=== PATIENT | male | born 1990 | race Caucasian/White ===

== ENCOUNTER 2016-10-03 21:23 | Emergency (ER) | payer MEDICAID, OTHER ==
[2016-10-03] MEDS ORDERED: ASPIRIN (CHEWABLE) 81 MG TAB ONE (21:38)
[2016-10-03] MEDS ORDERED: ASPIRIN (CHEWABLE) 81 MG TAB PO ONE (21:45)
--- NOTE | 2016-10-03 21:53 | ED.PDOC ---
History of Present Illness - General Chief Complaint: Chest Pain/LA Stated Complaint: Chest pain Time Seen by Provider: 10/03/16 21:44 Source: patient, RN notes reviewed, Vital Signs reviewed Exam Limitations: no limitations - History of Present Illness Initial Comments: Patient comes in with L sided chest pain that started @ ~3pm today. Pain is dull and occasionally feels like a cramp. It waxes and wanes in intensity. Currently 07/29. Pain radiates to L upper back and L shoulder/upper arm feels numb. + SOB when pain comes. + nausea. No diaphoresis. No history of cardiovascular disease. Remote family history in grandparents. Father id due to accident. Mom has HTN. Timing/Duration: 7-24 hours Severity/Quality: moderate, dull, tightness Location: substernal Chest Pain Radiation: shoulders - Left, back Activities at Onset: emotional stress Prior Chest Pain/Cardiac Workup: no prior chest pain Improving Factors: nothing Worsening Factors: nothing Nitro Today/Relief: no nitro taken today Aspirin Treatment Today: 81 mg x 4, provided by ED Associated Symptoms: back pain, nausea/vomiting, shortness of breath Allergies/Adverse Reactions: Allergies NO KNOWN ALLERGY Allergy (Verified 10/03/16 21:55) Home Medications: Ambulatory Orders Naproxen [Naprosyn] 500 mg PO BID #30 tab 10/04/16 Review of Systems - Review of Systems Constitutional: States: no symptoms reported. Denies: chills, diaphoresis, fever, malaise EENTM: States: no symptoms reported Respiratory: States: see HPI, short of breath. Denies: cough Cardiology: States: see HPI, chest pain. Denies: edema, palpitations, syncope Gastrointestinal/Abdominal: States: see HPI, nausea. Denies: abdominal pain Musculoskeletal: States: see HPI, back pain Skin: States: no symptoms reported Neurological: States: see HPI, numbness - L soulder and upper arm. Denies: headache, tingling, weakness Endocrine: States: no symptoms reported Hematologic/Lymphatic: States: no symptoms reported Family Medical History - Family History Father Living Status: Hx Family Hypertension: Yes Hx Cardiac Disease: Yes Physical Exam - Physical Exam General Appearance: Alert, Anxious, No apparent distress, Obese, Well Developed , Well Groomed, Well Hydrated, Well Nourished Neck: non-tender, full range of motion, supple, normal inspection Respiratory: lungs clear, normal breath sounds, no respiratory distress, no accessory muscle use, other - L anterior chest is tender to palpation Cardiovascular/Chest: normal peripheral pulses, no edema, no gallop, no JVD, no murmur, tachycardia Peripheral Pulses: dorsalis pedis,right: 2+, dorsalis pedis,left: 2+ Gastrointestinal/Abdominal: normal bowel sounds, non tender, soft, no organomegaly, no pulsatile mass Extremity: normal range of motion, non-tender, normal inspection, no pedal edema Neurologic: alert, normal mood/affect, oriented x 3 Skin Exam: normal color, warm/dry Progress - Progress Progress: 10/03/16 23:13 Initial workup is normal. Still having episodes of worsening chest pain that are associated with tachycardia. He has been under a lot of stress recently. Will await 2nd set of cardiac enzymes. Will try Ativan while we wait. 10/04/16 00:46 Patient is sleeping comfortably. 10/04/16 01:49 Second set of cardiac enzymes are normal. Patient is having episodes of apnea as he sleeps. Will d/c home with cardiology followup for chest pain and abnormal EKG showing WPW Follow up with PCP for sleep study. Most likely pleurisy. Will treat with anti-inflammatories. - Results/Orders Results/Orders: Laboratory Tests 10/03/16 10/03/16 10/04/16 21:55 21:55 01:05 WBC 9.4 RBC 5.60 Hgb 16.2 Hct 46.6 MCV 83.2 MCH 28.9 MCHC 34.7 RDW 14.2 Plt Count 195 MPV 9.3 Absolute Neuts (auto) 6.50 Absolute Lymphs (auto) 2.20 Absolute Monos (auto) 0.50 Absolute Eos (auto) 0.00 Absolute Basos (auto) 0.20 H Neutrophils % 69.0 Lymphocytes % 23.0 Monocytes % 5.8 Eosinophils % 0.4 L Basophils % 1.8 Sodium 138 Potassium 3.6 Chloride 103 Carbon Dioxide 26 Anion Gap 12.6 BUN 11 Creatinine 0.92 BUN/Creatinine Ratio 12.0 Random Glucose 111 H Serum Osmolality 275.8 Calcium 9.6 Total Bilirubin 0.7 AST 27 ALT 44 Alkaline Phosphatase 64 Creatine Kinase 80 70 CK-MB (CK-2) 1.1 1.1 CK-MB (CK-2) % Not Reportable Not Reportable Troponin I < 0.02 < 0.02 Serum Total Protein 8.3 H Albumin 4.4 Globulin 3.9 H Albumin/Globulin Ratio 1.1 - EKG/XRAY/CT EKG: Sinus, Tachy, no ST T wave changes Comments: WPW pattern Departure - Departure Clinical Impression: Pleurisy without effusion, Sleep apnea in adult Chest pain Qualifiers: Chest pain type: unspecified Qualified Code(s): R07.9 - Chest pain, unspecified Time of Disposition: :51 Disposition: Discharge to Home or Self Care Condition: Good Instructions: DI for Atypical Chest Pain, DI for Pleurisy, DI for Obstructive Sleep Apnea -- Adult Diet: low fat, low cholesterol Activity: increase activity as tolerated Referrals: WALLACE KAMINSKI MD [Consulting Staff] - 1-2 Weeks Prescriptions: Naproxen [Naprosyn] 500 mg PO BID #30 tab Home Medications: Ambulatory Orders Naproxen [Naprosyn] 500 mg PO BID #30 tab 10/04/16 Comments: Follow up with PCP for re-evaluation and referral for sleep study due to sleep apnea.
[2016-10-03 22:02] VITALS: TEMP 100
--- NOTE | 2016-10-03 22:45 | RAD ---
EXAM DESCRIPTION: Chest,1 View CLINICAL HISTORY: cardiac chest pain COMPARISON: None FINDINGS: Cardiac silhouette is within normal limits. EKG leads project over the chest. There is no focal parenchymal or pleural disease. There is no acute osseous process visualized. IMPRESSION: No evidence of acute cardiopulmonary disease. Electronically signed by: Rigoberto Hooker MD 10/03/2016 10:45 PM CDT
[2016-10-04 02:12] VITALS: BP 134/74; O2SAT 98
== END 2016-10-04 02:12 | disposition home or self-care (01) ==
LOC: ER 21:23
DX: R09.1 Pleurisy (principal); R07.9 Chest pain, unspecified; G47.30 Sleep apnea, unspecified; R94.31 Abnormal electrocardiogram [ECG] [EKG]; Z82.49 Family history of ischemic heart disease and other diseases of the circulatory system
CPT/HCPCS: 36415; 71010; 80053; 82550; 82553; 84484; 85025; 93005; J2060